=== PATIENT | female | born 1975 | race Caucasian/White ===

== ENCOUNTER 2020-03-17 16:28 | Emergency (ER) | payer OTHER ==
[~2020-03-17] VITALS: Ht 154.9 cm; Wt 54.4 kg
[~2020-03-17 16:28] MED LIST: ACET500; ALBU90OI INH; AMOX500 PO; AZIT250 PO; BENZ100A PO; BIRTH CONTROL PO; CETI10 PO; CIPR500 PO; CODGUAEL PO; CYCL10 PO; Cyclobenzaprine5 MG PO; DIPATR PO; DIPH50 PO; DOC250 PO; DOCU100 PO; DOXY100 PO; ESTNORT; FLUO10 MT; HYDACE10B PO; HYDACE5 PO; HYDACE5325 PO; HYDCOR1TC TOP; HYDPAM50 PO; IBUP200; IBUP400 PO; IBUP600 PO; IBUP800 PO; LEVSOD75 PO; LORA.5 PO; LORA1; LORA1 PO; LORA2 PO; METPRE4DP PO; METR500 PO; MULVITMINE PO; NAPR500 PO; NAPR550 PO; NEOPOLDEXS OD; NUVA RING; NUVARING; Naprosyn500 MG PO; ONDA4 PO; ONDA8ODT MM; OTC ANTIHISTAMINE; OXYACE5T PO; POTCHL20ER PO; PRED10 PO; PRED20 PO; PROM25 PO; RXHYD5325 PO; RXHYDACE PO; RXLORA1 PO; RXNAPNA550 PO; RXONDA4ODT MM; RXOXYACE PO; RXTRAM50 PO; SULTRIDS PO; TRAM50 PO; TRIA80TC TOP; ZICAM
[2020-03-17 17:47] LABS: BASOPHILS ABSOLUTE AUTO 0.04 K/mm3 (0.00-0.23); BASOPHILS PERCENT AUTO 0 % (0-2); EOSINOPHILS ABSOLUTE AUTO 0.12 K/mm3 (0.00-0.68); EOSINOPHILS PERCENT AUTO 1 % (0-6); Hematocrit 30.7 % (33.0-51.0); Hemoglobin 8.1 g/dL (11.5-16.0); IMMATURE GRAN ABSOLUTE AUTO 0.02 K/mm3 (0.00-0.10); IMMATURE GRAN PERCENT AUTO 0 % (0-1); LYMPHOCYTES ABSOLUTE AUTO 1.36 K/mm3 (0.84-5.20); LYMPHOCYTES PERCENT AUTO 13 % (21-46); MONOCYTES ABSOLUTE AUTO 0.56 K/mm3 (0.16-1.47); MONOCYTES PERCENT AUTO 6 % (4-13); Mean Corpuscular HGB 17.4 pg (26.0-34.0); Mean Corpuscular HGB Conc 26.4 g/dL (31.5-36.5); Mean Corpuscular Volume 66 fL (80-100); Mean Platelet Volume 9.4 fL (9.1-12.4); NEUTROPHILS ABSOLUTE AUTO 8.06 K/mm3 (1.96-9.15); NEUTROPHILS PERCENT AUTO 79 % (41-73); Platelet Count 513 K/mm3 (150-400); RDW Coefficient Variation 17.5 % (11.7-14.2); RDW Standard Deviation 41.1 fL (35.1-46.3); Red Blood Cell Count 4.66 M/mm3 (3.80-5.20); White Blood Cell Count 10.16 K/mm3 (4.00-11.30)
[2020-03-17 18:17] LABS: Alanine Aminotransfer (ALT/SGP 12 U/L (12-78); Albumin, Blood 3.8 g/dL (3.4-5.0); Alk Phos 48 U/L (50-136); Anion Gap 5 mmol/L (6-16); Aspartate Aminotrans (AST/SGOT 8 U/L (12-37); Bilirubin, Total 0.7 mg/dL (0.1-1.0); Blood Urea Nitrogen 9 mg/dL (8-24); Bun/Creatinine Ratio 15.8 (12.0-20.0); CO2, Blood 23 mmol/L (21-32); Chloride, Blood 110 mmol/L (98-108); Creatinine, Blood 0.57 mg/dL (0.40-1.00); Glomerular Filtration Rate >60 (60-); Glucose, Blood 105 mg/dL (70-99); Potassium, Blood 3.7 mmol/L (3.5-5.5); Sodium, Blood 138 mmol/L (136-145); Total Protein, Blood 7.8 g/dL (6.4-8.2)
== END 2020-03-17 22:54 | disposition home or self-care (01) ==
LOC: ER 16:28
PROVIDERS: Physician Assistant
DX: N83.201 Unspecified ovarian cyst, right side (principal)
CPT/HCPCS: 36415; 76856; 80053; 81025; 82272; 84703; 85025; 99284-25

== ENCOUNTER 2020-04-13 12:53 | Day surgery (SDC) | payer OTHER ==
[~2020-04-13] VITALS: Ht 157.5 cm; Wt 57.4 kg
== END 2020-04-13 15:45 | disposition home or self-care (01) ==
LOC: ORSCSDS 12:53
PROVIDERS: Internal Medicine Gastroenterology
PROC: 0DJD8ZZ Inspection of Lower Intestinal Tract, Via Natural or Artificial Opening Endoscopic (ICD-10-PCS; principal; 2020-04-13 14:30)
PROC: 0DB58ZX Excision of Esophagus, Via Natural or Artificial Opening Endoscopic, Diagnostic (ICD-10-PCS; 2020-04-13 14:30)
DX: D50.0 Iron deficiency anemia secondary to blood loss (chronic) (principal); B37.81 Candidal esophagitis; R19.5 Other fecal abnormalities; K22.2 Esophageal obstruction; F17.210 Nicotine dependence, cigarettes, uncomplicated; D64.9 Anemia, unspecified; F32.9 Major depressive disorder, single episode, unspecified; Z79.899 Other long term (current) drug therapy
CPT/HCPCS: 88305; 88312; C1726; J2250; J2704; J7120

== ENCOUNTER → 2021-07-09 | Outpatient (CLI) | payer OTHER ==
[2021-07-09 15:08] LABS: BASOPHILS ABSOLUTE AUTO 0.09 K/mm3 (0.00-0.23); BASOPHILS PERCENT AUTO 2 % (0-2); EOSINOPHILS ABSOLUTE AUTO 0.27 K/mm3 (0.00-0.68); EOSINOPHILS PERCENT AUTO 5 % (0-6); Hematocrit 44.2 % (33.0-51.0); Hemoglobin 12.7 g/dL (11.5-16.0); IMMATURE GRAN ABSOLUTE AUTO 0.01 K/mm3 (0.00-0.10); IMMATURE GRAN PERCENT AUTO 0 % (0-1); LYMPHOCYTES ABSOLUTE AUTO 1.74 K/mm3 (0.84-5.20); LYMPHOCYTES PERCENT AUTO 30 % (21-46); MONOCYTES ABSOLUTE AUTO 0.54 K/mm3 (0.16-1.47); MONOCYTES PERCENT AUTO 9 % (4-13); Mean Corpuscular HGB 27.5 pg (26.0-34.0); Mean Corpuscular HGB Conc 28.7 g/dL (31.5-36.5); Mean Corpuscular Volume 96 fL (80-100); Mean Platelet Volume 10.6 fL (9.1-12.4); NEUTROPHILS PERCENT AUTO 55 % (41-73); Platelet Count 340 K/mm3 (150-400); RDW Standard Deviation 45.9 fL (35.1-46.3); Red Blood Cell Count 4.61 M/mm3 (3.80-5.20); White Blood Cell Count 5.85 K/mm3 (4.00-11.30)
== END | disposition home or self-care (01) ==
LOC: LAB 11:18 → LAB SHORT 11:18
PROVIDERS: Internal Medicine Hematology & Oncology
DX: D50.0 Iron deficiency anemia secondary to blood loss (chronic) (principal)
CPT/HCPCS: 85025

== ENCOUNTER 2021-07-17 07:57 | Emergency (ER) | payer OTHER ==
[~2021-07-17] VITALS: Ht 152.4 cm; Wt 58.1 kg
[2021-07-17] MEDS ORDERED: ERYT1OIN LEFTEYE (09:37)
== END 2021-07-17 09:46 | disposition home or self-care (01) ==
LOC: ER 07:57
DX: S05.02XA Injury of conjunctiva and corneal abrasion without foreign body, left eye, initial encounter (principal); X58.XXXA Exposure to other specified factors, initial encounter; Z88.1 Allergy status to other antibiotic agents; Z88.8 Allergy status to other drugs, medicaments and biological substances
CPT/HCPCS: A9270

== ENCOUNTER → 2022-03-02 | Outpatient (CLI) | payer OTHER ==
[~2022-03-02] MED LIST changes: +ERYT1OIN LEFTEYE
[2022-03-02 18:29] LABS: Percent Saturation 6.1 % (15.0-50.0)
== END | disposition home or self-care (01) ==
LOC: LAB SHORT 11:08
PROVIDERS: Internal Medicine Hematology & Oncology
DX: D50.0 Iron deficiency anemia secondary to blood loss (chronic) (principal); E53.8 Deficiency of other specified B group vitamins
CPT/HCPCS: 82607; 82728; 82746; 83540; 83550

== ENCOUNTER → 2024-04-03 | Outpatient (CLI) | payer OTHER ==
[2024-04-03 15:02] LABS: BASOPHILS ABSOLUTE AUTO 0.05 K/mm3 (0.00-0.23); BASOPHILS PERCENT AUTO 1 % (0-2); EOSINOPHILS ABSOLUTE AUTO 0.17 K/mm3 (0.00-0.68); EOSINOPHILS PERCENT AUTO 2 % (0-6); Hemoglobin 10.7 g/dL (11.5-16.0); IMMATURE GRAN ABSOLUTE AUTO 0.01 K/mm3 (0.00-0.10); IMMATURE GRAN PERCENT AUTO 0 % (0-1); LYMPHOCYTES PERCENT AUTO 33 % (21-46); MONOCYTES ABSOLUTE AUTO 0.57 K/mm3 (0.16-1.47); MONOCYTES PERCENT AUTO 8 % (4-13); Mean Corpuscular HGB 24.9 pg (26.0-34.0); Mean Corpuscular HGB Conc 30.6 g/dL (31.5-36.5); Mean Corpuscular Volume 82 fL (80-100); NEUTROPHILS ABSOLUTE AUTO 4.08 K/mm3 (1.96-9.15); NEUTROPHILS PERCENT AUTO 56 % (41-73); Platelet Count 390 K/mm3 (150-400); RDW Coefficient Variation 14.1 % (11.7-14.2); RDW Standard Deviation 41.8 fL (35.1-46.3); Red Blood Cell Count 4.29 M/mm3 (3.80-5.20); White Blood Cell Count 7.28 K/mm3 (4.00-11.30)
[2024-04-03 22:16] LABS: Percent Saturation 4.2 % (15.0-50.0)
== END | disposition home or self-care (01) ==
LOC: LAB 12:58 → LAB SHORT 12:58
PROVIDERS: Internal Medicine Hematology & Oncology
DX: D64.9 Anemia, unspecified (principal)
CPT/HCPCS: 82728; 83540; 83550; 85025

== ENCOUNTER 2024-05-05 02:34 | Emergency (ER) | payer OTHER ==
[~2024-05-05] VITALS: Ht 154.9 cm; Wt 59.0 kg
[2024-05-05] MEDS ORDERED: Ondansetron HCl 2 MG / ML 2ML Vial IV ONE (02:55)
[2024-05-05] MEDS ORDERED: NS 1,000 ML IV SCH (02:55)
[2024-05-05] MEDS ORDERED: Morphine Sulfate 4 MG/1 ML Injection IV ONE ×2 (02:55→04:10)
[2024-05-05 03:23] LABS: BASOPHILS ABSOLUTE AUTO 0.01 K/mm3 (0.00-0.23); BASOPHILS PERCENT AUTO 0 % (0-2); EOSINOPHILS ABSOLUTE AUTO 0.12 K/mm3 (0.00-0.68); EOSINOPHILS PERCENT AUTO 2 % (0-6); Hematocrit 37.5 % (33.0-51.0); Hemoglobin 11.8 g/dL (11.5-16.0); IMMATURE GRAN ABSOLUTE AUTO 0.01 K/mm3 (0.00-0.10); IMMATURE GRAN PERCENT AUTO 0 % (0-1); LYMPHOCYTES ABSOLUTE AUTO 0.84 K/mm3 (0.84-5.20); LYMPHOCYTES PERCENT AUTO 12 % (21-46); MONOCYTES ABSOLUTE AUTO 0.41 K/mm3 (0.16-1.47); MONOCYTES PERCENT AUTO 6 % (4-13); Mean Corpuscular HGB 26.2 pg (26.0-34.0); Mean Corpuscular HGB Conc 31.5 g/dL (31.5-36.5); Mean Corpuscular Volume 83 fL (80-100); Mean Platelet Volume 9.7 fL (9.1-12.4); NEUTROPHILS ABSOLUTE AUTO 5.39 K/mm3 (1.96-9.15); NEUTROPHILS PERCENT AUTO 80 % (41-73); Platelet Count 281 K/mm3 (150-400); RDW Coefficient Variation 16.6 % (11.7-14.2); Red Blood Cell Count 4.51 M/mm3 (3.80-5.20); White Blood Cell Count 6.78 K/mm3 (4.00-11.30)
[2024-05-05 03:42] LABS: Albumin, Blood 3.2 g/dL (3.4-5.0); Bilirubin, Total 0.9 mg/dL (0.1-1.0); Bun/Creatinine Ratio 10.8 (12.0-20.0); Calcium, Blood 8.4 mg/dL (8.5-10.1); Creatinine, Blood 0.65 mg/dL (0.40-1.00); Globulin, Blood 3.2 g/dL (2.2-4.0); Potassium, Blood 3.2 mmol/L (3.5-5.5); Total Protein, Blood 6.4 g/dL (6.4-8.2)
[2024-05-05] MEDS ORDERED: ONDA4ODT MM (04:44)
[2024-05-05] MEDS ORDERED: RX Prepack 2 Tabs Ondansetron ODT 4MG UD ONE (04:45)
[2024-05-05 04:58] VITALS: BP 119/76
== END 2024-05-05 04:59 ==
LOC: ER 02:34
PROVIDERS: Emergency Medicine
DX: R10.12 Left upper quadrant pain (principal); R11.2 Nausea with vomiting, unspecified
CPT/HCPCS: 80053; 83690; 85025; 96361; 96374; 96375; 96376; 99284-25; A9270; J2270; J2405; J7030

== ENCOUNTER 2024-07-30 08:51 | Day surgery (SDC) | payer OTHER ==
[~2024-07-30] VITALS: Ht 152.4 cm; Wt 61.1 kg
[2024-07-30] VITALS (14 sets, daily range): BP systolic 105–138; BP diastolic 66–113
[~2024-07-30 08:51] MED LIST changes: +Benzocaine Oral Spray 0.5ML UD ONE; +Lactated Ringer's 1,000 ML IV SCH; +ONDA4ODT MM
[2024-07-30] MEDS ORDERED: propofoL 40 ML IV ONE (09:42)
--- NOTE | 2024-07-30 10:21 | NUR ---
07/30/24 1021 Radha Clark CONFIRMED AND REVIEWED H&P, MEDCICATIONS, ALLERGIES, MEDICAL HISTORY, RESPIRATORY HISTORY, VITAL SIGNS, 3-LEAD EKG, CONSENTS, AND PHYSICIAN ORDERS. PATIENT CONFIRMS NPO STATUS AND AGREES WITH SCHEDULED PROCEDURE. MONITOR INTACT WITH CONTINUOUS PULSE OXIMETRY, CAPNOGRAPHY, 3-LEAD EKG, INTERMITTENT BP. SUPPLEMENTAL O2 TO BE TITRATED THROUGHOUT PROCEDURE TO MAINTAIN O2 SATURATION ABOVE 90%. PATIENT DETERMINED TO BE ASA APPROPRIATE FOR PROPOFOL SEDATION PRIOR TO START OF PROCEDURE BY DR. RODAS
--- NOTE | 2024-07-30 11:02 | NUR ---
Patient up to Ambulate independently. Gait steady. Discharge instructions reviewed with patient. Patient verbalizes understanding. Copy given to patient to take home. Discharged via wheelchair to private car for ride home.
== END 2024-07-30 11:00 | disposition home or self-care (01) ==
LOC: ORSCMMR 08:51 → ORD 09:30 → ORSCMMR 11:00
PROVIDERS: Internal Medicine Gastroenterology
PROC: 0DB98ZX Excision of Duodenum, Via Natural or Artificial Opening Endoscopic, Diagnostic (ICD-10-PCS; principal; 2024-07-30 09:30)
PROC: 0DB68ZX Excision of Stomach, Via Natural or Artificial Opening Endoscopic, Diagnostic (ICD-10-PCS; principal; 2024-07-30 09:30)
PROC: 0DB48ZX Excision of Esophagogastric Junction, Via Natural or Artificial Opening Endoscopic, Diagnostic (ICD-10-PCS; principal; 2024-07-30 09:30)
PROC: 0DB58ZX Excision of Esophagus, Via Natural or Artificial Opening Endoscopic, Diagnostic (ICD-10-PCS; principal; 2024-07-30 09:30)
DX: D50.9 Iron deficiency anemia, unspecified (principal); R13.10 Dysphagia, unspecified; K22.10 Ulcer of esophagus without bleeding; F17.210 Nicotine dependence, cigarettes, uncomplicated; Z87.11 Personal history of peptic ulcer disease; Z87.19 Personal history of other diseases of the digestive system
CPT/HCPCS: 87102; 88305; 88342; A9270; C1726; J2704; J7120

== ENCOUNTER 2024-08-26 08:45 | Day surgery (SDC) | payer OTHER ==
[~2024-08-26] VITALS: Ht 152.4 cm; Wt 60.4 kg
[~2024-08-26 08:45] MED LIST changes: -Benzocaine Oral Spray 0.5ML UD ONE; -Lactated Ringer's 1,000 ML IV SCH
[2024-08-26] MEDS ORDERED: OMEP20ER PO (08:55)
[2024-08-26 09:00] VITALS: BP 110/77
--- NOTE | 2024-08-26 09:07 | NUR ---
Ambulatory in Day Surgery WITH STEADY GAIT. History, Chart, Medications and Allergies reviewed before start of procedure. DR RODAS INFORMED OF PT REPORTING HAVING A SEIZURE "ABOUT A MONTH AGO". DR RODAS EXPLAINED TO THE PT THAT DUE TO THE SEIZURE HE IS UNABLE TO PERFORM THE SCOPE TODAY FOR HER SAFETY. PT'S BELONGINGS RETURNED TO HER, SHE GOT DRESSED AND WAS WALKED OUT OF THE UNIT. PT DENIES CURRENTLY TAKING ANY PRESCRIPTION MEDICATIONS FOR HER SEIZURES AND REPORTS HAVING HER SEIZURES BECAUSE OF HER LUPUS. SHE ALSO REPORTS SMOKING MARIJUANNA DAILY TO CONTROL HER SIEZURES. LAST TIME SHE REPORTS SMOKING WAS 08/24/24.
== END 2024-08-26 23:00 | disposition home or self-care (01) ==
LOC: ORSCMMR 08:45 → ORD 09:30 → ORSCMMR 09:30
DX: D46.4 Refractory anemia, unspecified (principal); Z53.9 Procedure and treatment not carried out, unspecified reason
CPT/HCPCS: J2704; J7120